=== PATIENT | male | born 1985 | race Caucasian/White ===

== ENCOUNTER 2023-09-04 20:36 | Emergency (ER) | payer BC, OTHER ==
[2023-09-04] MEDS: Acetaminophen/HYDROcodone 325-5 MG Tab PO ONE (20:56)
[2023-09-04] MEDS: Ketorolac 60 MG/2 ML SDV IM ONE (22:25)
== END 2023-09-04 22:30 | disposition home or self-care (01) ==
LOC: JD.ED 20:36
DX: S49.91XA Unspecified injury of right shoulder and upper arm, initial encounter (principal); Z79.899 Other long term (current) drug therapy; W17.89XA Other fall from one level to another, initial encounter; Y93.89 Activity, other specified
CPT/HCPCS: 71101; 72040; 73030; 96372; 99283; A9270; J1885